=== PATIENT | female | born 1960 | race Caucasian/White ===

== ENCOUNTER 2019-03-12 10:58 | Outpatient (CLI) | payer OTHER ==
[~2019-03-12 10:58] MED LIST: CIPRO500 MG PO; KETO10TA2 PO
[2019-03-12] MEDS ORDERED: ZOCOR20 MG PO (15:53)
[2019-03-12] MEDS ORDERED: GLUCOPHAGE XR500 MG PO (15:54)
[2019-03-12] MEDS ORDERED: HYZAAR 50-12.51 EACH PO (15:54)
== END 2019-03-12 13:26 | disposition home or self-care (01) ==
LOC: RAD 10:58
DX: Z01.810 Encounter for preprocedural cardiovascular examination (principal); Z01.811 Encounter for preprocedural respiratory examination

== ENCOUNTER 2019-03-16 05:25 | Day surgery (SDC) | payer OTHER ==
[~2019-03-16 05:25] MED LIST changes: +GLUCOPHAGE XR500 MG PO; +HYZAAR 50-12.51 EACH PO; +ZOCOR20 MG PO
== END 2019-03-16 12:50 | disposition home or self-care (01) ==
LOC: CIR.AMB 05:25
DX: N85.01 Benign endometrial hyperplasia (principal)

== ENCOUNTER 2020-12-12 07:30 | Inpatient (IN) | payer OTHER ==
[~2020-12-12] VITALS: Ht 162.6 cm; Wt 67.6 kg
== END 2020-12-21 10:12 | disposition home or self-care (01) | DRG 743 ==
LOC: O/R 12-19 05:40 → OB/GYN 12-19 05:40
PROVIDERS: ADMIT Specialist; ATTEND Specialist
PROC: 0UT20ZZ Resection of Bilateral Ovaries, Open Approach (ICD-10-PCS; 2020-12-19)
PROC: 0UT70ZZ Resection of Bilateral Fallopian Tubes, Open Approach (ICD-10-PCS; 2020-12-19)
PROC: 0UT90ZZ Resection of Uterus, Open Approach (ICD-10-PCS; principal; 2020-12-19 09:00)
DX: D25.1 Intramural leiomyoma of uterus (principal); N80.0 Endometriosis of uterus; N83.292 Other ovarian cyst, left side; N83.291 Other ovarian cyst, right side; N83.8 Other noninflammatory disorders of ovary, fallopian tube and broad ligament; I10 Essential (primary) hypertension; E08.9 Diabetes mellitus due to underlying condition without complications; Z79.84 Long term (current) use of oral hypoglycemic drugs

== ENCOUNTER 2025-10-24 06:08 | Emergency (ER) | payer OTHER ==
[~2025-10-24] VITALS: Ht 162.6 cm; Wt 63.5 kg
[2025-10-24] MEDS ORDERED: DEXAMETHASONE SODIUM PHOSPHATE 4 MG/ML VIAL IM STA (07:53)
[2025-10-24] MEDS ORDERED: CEFTRIAXONE SODIUM 1,000 MG VIAL IM STA (07:53)
[2025-10-24] MEDS ORDERED: ACETAMINOPHEN 500 MG GEL..CAP PO ONE ×2 (08:00→08:17)
[2025-10-24] MEDS ORDERED: GUAIFENESIN 200 MG/10 ML BLIST.PACK PO ONE ×2 (08:00→08:17)
[2025-10-24] MEDS ORDERED: CETIRIZINE HCL 10 MG TABLET PO ONE (08:00)
[2025-10-24] MEDS ORDERED: DEXAMETHASONE SODIUM PHOSPHATE 4 MG/ML VIAL ONE (08:17)
[2025-10-24] MEDS ORDERED: LIDOCAINE HCL 1% 10ML VIAL ONE (08:17)
[2025-10-24] MEDS ORDERED: CEFTRIAXONE SODIUM 1,000 MG VIAL ONE (08:17)
[2025-10-24] MEDS ORDERED: CETIRIZINE HCL 5MG/5ML BLIST.PACK PO ONE (08:17)
[2025-10-24 09:43] LABS: BASO % 0.7 % (0.1-1.2); EOS # 0.01 (0.04-0.54); EOS % 0.2 % (0.7-7.0); LYMPH # 1.09 (1.18-3.74); LYMPH % 19.1 % (19.3-53.1); MEAN PLATELET VOLUME 8.70 fl (9.4-12.4); MONO # 0.82 (0.24-0.82); NEUT # 3.74 (1.56-6.13); NEUT % 65.4 % (34.0-71.1); RED CELL DISTRIBUTION WIDTH 12.0 % (11.6-14.4)
[2025-10-24 09:54] LABS: MONO % 14.3 % (4.7-12.5)
[2025-10-24 10:12] LABS: COVID-19 AG NEGATIVE (NEGATIVE)
[2025-10-24] MEDS ORDERED: DELSYM COUGH+C180 ML PO (10:58)
[2025-10-24] MEDS ORDERED: OSEL75CA PO (10:58)
== END 2025-10-24 11:22 | disposition home or self-care (01) ==
LOC: ER 06:09
PROVIDERS: General Practice
DX: J10.1 Influenza due to other identified influenza virus with other respiratory manifestations (principal); Z88.2 Allergy status to sulfonamides; I10 Essential (primary) hypertension; E11.9 Type 2 diabetes mellitus without complications; Z79.84 Long term (current) use of oral hypoglycemic drugs; Z20.822 Contact with and (suspected) exposure to COVID-19